=== PATIENT | female | born 1950 | race Two or more races ===

== ENCOUNTER 2021-12-18 07:18 | Outpatient (CLI) | payer OTHER | END 2021-12-18 07:23 | disposition home or self-care (01) | LOC: NUCLEAR 07:18 | PROVIDERS: ATTEND Internal Medicine Cardiovascular Disease | DX: I25.6 Silent myocardial ischemia (principal); I20.9 Angina pectoris, unspecified; R06.02 Shortness of breath | CPT/HCPCS: 78451; 93018; A9500 ==